=== PATIENT | female | born 1965 | race Caucasian/White ===

== ENCOUNTER 2018-06-19 19:35 | Observation (INO) ==
[2018-06-19 20:04] LABS: Bilirubin,Urine Small (Negative); Blood,Urine Large (Negative); Clarity,Urine Turbid (Clear); Color,Urine Yellow (Yellow); Glucose,Urine (UA) Normal (Normal); Ketones,Urine 40 mg/dL (Negative); Leukocyte Esterase,Urine Small (Negative); Nitrite,Urine Positive (Negative); Protein,Urine >=300 mg/dL (Neg-Trace); Specific Gravity,Urine >= 1.030 (1.010-1.025); Urobilinogen,Urine Normal (Normal)
[2018-06-19 20:12] LABS: Bacteria,Urine Many per hpf (None-Few); RBC,Urine TNTC per hpf (0-3); Squamous Epithelial Cell,Urine Few per lpf (None-Few); Transitional Epi Cells,Urine Few per hpf (None-Few); WBC,Urine TNTC per hpf (0-3)
[2018-06-19] MEDS ORDERED: 0.9 % Sodium Chloride 1,000 ML IVC ONE (20:26)
[2018-06-19] MEDS ORDERED: Ketorolac 30 MG/ML VIAL IVP ONE (20:26)
--- NOTE | 2018-06-19 20:29 | Emergency Department Note ---
Disposition Clinical Impression: Persistent vomiting Urinary tract infection Qualifiers: Urinary tract infection type: site unspecified Hematuria presence: with hematur ia Qualified Code(s): N39.0 - Urinary tract infection, site not specified; R31.9 - Hematuria, unspecified Disposition: Admitted As Inpatient Condition: Fair Referrals: Karen Gonzalez, SLICE PLUG CUTTER OPERATOR [Primary Care Provider] - Forms: ED Satisfaction Letter Time of Disposition: 22:20 Nausea/Vomiting/Diarrhea HPI - General Chief complaint: ED Nausea/Vomiting/Diarrhea Stated complaint: vomiting for 2 days Time Seen by Provider: 06/19/18 19:38 Source: patient Mode of arrival: private vehicle Limitations: no limitations Nursing Notes Reviewed: Yes Vital Signs Reviewed: Yes - History of Present Illness Pt Subjective Complaint: nausea, vomiting Onset (ago): day(s) (2 days) Description of emesis: food contents, watery Associated Abdominal Pain: Yes If pain, Location of pain: other (Suprapubic) Radiation: other (Back) Severity: moderate Quality: cramping Consistency: constant Improves with: nothing Worsens with: movement Associated symptoms: Reports: cough (With runny nose), fever/chills (Reportedly had temperature 102 earlier today), other (Dysuria and frequency) - Related Data Allergies Allergy/AdvReac Type Severity Reaction Status Date / Time No Known Allergies Allergy Verified 06/19/18 19:35 All systems ED: reviewed and negative except as stated. Constitutional: Reports: fever, chills ENT ED: Reports: congestion. Denies: ear pain, throat pain Cardiovascular: Denies: chest pain, palpitations Respiratory: Reports: cough. Denies: dyspnea, wheezes Gastrointestinal: Reports: abdominal pain, nausea, vomiting. Denies: diarrhea Genitourinary: Reports: urgency, dysuria, frequency Musculoskeletal: Reports: back pain Integumentary: Denies: rash Past Medical History - Past Medical History Attestation: Yes The following information was validated with the patient. Source: patient, nursing notes reviewed Medical history: Reports: other Psychiatric history: Reports: anxiety, depression DATA BASE ADMINISTRATOR history: Reports: endometriosis, bilateral tubal ligation - Social History Smoking Status: Current every day smoker Smokeless Tobacco Status: No Alcohol use: Reports: rarely Drug use: Reports: none Physical Exam - General Limitations: no limitations General appearance: alert, in no apparent distress - Head Head exam: atraumatic, normocephalic, normal inspection - Eye Eye exam: Present: normal appearance, PERRL, EOMI. Absent: scleral icterus, conjunctival injection - ENT ENT exam: normal exam, normal oropharynx, mucous membranes moist, normal external ear exam - Neck Neck exam: Present: normal inspection, full ROM. Absent: meningismus - Chest Chest inspection: Present: normal inspection, symmetric chest wall rise. Absent: tenderness - Respiratory Respiratory exam: Present: normal lung sounds bilaterally. Absent: respiratory distress, wheezes - Cardiovascular Cardiovascular exam: Present: normal rhythm, tachycardia, normal heart sounds - Abdominal Exam Abdominal exam: Present: soft, tenderness. Absent: distention Abdominal tenderness: Present: suprapubic - Extremities Exam Extremities exam: Present: normal inspection. Absent: pedal edema - Back Exam Back exam: Absent: CVA tenderness (R), CVA tenderness (L) - Neurological Exam Neurological exam: Present: alert, oriented X3 - Psychiatric Psychiatric exam: Present: normal affect - Skin Skin exam: Present: warm, dry. Absent: rash Course Course Narrative: Patient presents with nausea and vomiting since yesterday and had a fever at home and scrubbed light urinary symptoms. She also has some respiratory symptoms though. Urinalysis came back positive for nitrates and a lot of white cells and a lot of bacteria in the urine so I think we definitely have a urinary tract infection. I will check flu swab and a chest x-ray to evaluate respiratory causes of infection. I will give her some IV fluids and some labs. A urinary tract infection with a fever would indicate upper urinary tract involvement but she has no CVA tenderness to percussion. I will start her on some antibiotics for we wait for the rest of the workup. Disposition will be based on diagnostic results and reevaluation. - Reevaluation(s) Reevaluation #1: Patient's workup was negative except for the obvious urinary tract infection and the elevated white count. Creatinine is a little bit up and we do not have a baseline value but is only mildly elevated and consistent with dehydration. The issue is that she still nauseous and even dry heaving here in the emergency department so I am concerned she will build keep her antibiotics down and in the context of a UTI where I suspect upper urinary tract involvement, we cannot have her go home and not take the medicine so she is to be admitted. I spoke with Dr. Sharma and he accepted patient for admission. She is already received her antibiotics here as well as IV fluids. Time: 22:18 - Consultations Consultation #1: Dr. Sharma, hospitalist - I discussed the case with the hospitalist. He has accepted the patient for admission to the hospital. Time: 22:15 Vital Signs Temperature 98.6 F 06/19/18 19:37 Pulse Rate 123 06/19/18 19:37 Respiratory Rate 20 06/19/18 19:37 Blood Pressure 116/80 06/19/18 19:37 O2 Sat by Pulse Oximetry 98 06/19/18 19:37 Temperature 98.6 F 06/19/18 19:37 Pulse Rate 98 06/19/18 21:16 Respiratory Rate 19 06/19/18 21:16 Blood Pressure 113/66 06/19/18 21:16 O2 Sat by Pulse Oximetry 95 06/19/18 21:16 Oxygen Delivery Oxygen Delivery Room Air Nausea/Vomiting/Diarrhea - Lab Data Lab results reviewed: Yes I reviewed the patient's lab results. Result diagrams: 06/19/18 20:50 06/19/18 20:50 Lab Results 06/19/18 06/19/18 06/19/18 Range/Units 19:59 20:50 20:50 WBC 14.5 H (4.3-11.1) K/mcL RBC 4.46 (3.82-4.97) M/mcL Hgb 14.0 (11.5-15.4) g/dL Hct 40.0 (35.3-44.9) % MCV 89.7 (83.0-100.0) fL MCH 31.4 (28.0-33.3) pg MCHC 35.0 (31.6-35.5) g/dL RDW 12.1 (11.5-14.5) % Plt Count 251 (140-400) K/mcL MPV 9.1 L (9.4-12.4) fL Immature Gran % 0.5 (0-4) % Seg Neutrophils % 83.4 % Lymphocytes % 5.1 % Monocytes % 10.7 % Eosinophils % 0.1 % Basophils % 0.2 % Neutrophils # 12.1 H (1.6-8.9) K/mcL Lymphocytes # 0.7 (0.6-4.6) K/mcL Monocytes # 1.6 H (0.0-1.3) K/mcL Eosinophils # 0.0 (0.0-0.6) K/mcL Basophils # 0.0 (0.0-0.2) K/mcL Sodium 135 L (136-145) mEq/L Potassium 3.5 (3.5-5.1) mEq/L Chloride 99 (98-107) mEq/L Carbon Dioxide 24 (23-29) mEq/L BUN 24 H (6-20) mg/dL Creatinine 1.33 H (0.60-1.20) mg/dL Est GFR ( Amer) 51 L (> 60) Est GFR (Non-Af Amer) 42 L (> 60) BUN/Creatinine Ratio 18 (6-26) Glucose 131 H (70-105) mg/dL Calculated Osmolality 286 (280-300) Lactic Acid (0.5-2.2) mmol/L Calcium 8.9 (8.6-10.3) mg/dL Urine Color Yellow (Yellow) Urine Clarity Turbid A (Clear) Urine pH 6.0 (5.0-8.0) pH Units Ur Specific [place] >= 1.030 H (1.010-1.025) Urine Protein >=300 H (Neg-Trace) mg/dL Urine Glucose (UA) Normal (Normal) mg/dL Urine Ketones 40 H (Negative) mg/dL Urine Blood Large H (Negative) Urine Nitrite Positive A (Negative) Urine Bilirubin Small H (Negative) Urine Urobilinogen Normal (Normal) mg/dL Ur Leukocyte Esterase Small H (Negative) Urine Microscopic RBC TNTC H (0-3) per hpf Urine Microscopic WBC TNTC H (0-3) per hpf Ur Squamous Epith Cells Few (None-Few) per lpf Ur Transition Epith Cell Few (None-Few) per hpf Urine Bacteria Many H (None-Few) per hpf Ur Culture Indicated? YES A (NO) 06/19/18 Range/Units 20:50 WBC (4.3-11.1) K/mcL RBC (3.82-4.97) M/mcL Hgb (11.5-15.4) g/dL Hct (35.3-44.9) % MCV (83.0-100.0) fL MCH (28.0-33.3) pg MCHC (31.6-35.5) g/dL RDW (11.5-14.5) % Plt Count (140-400) K/mcL MPV (9.4-12.4) fL Immature Gran % (0-4) % Seg Neutrophils % % Lymphocytes % % Monocytes % % Eosinophils % % Basophils % % Neutrophils # (1.6-8.9) K/mcL Lymphocytes # (0.6-4.6) K/mcL Monocytes # (0.0-1.3) K/mcL Eosinophils # (0.0-0.6) K/mcL Basophils # (0.0-0.2) K/mcL Sodium (136-145) mEq/L Potassium (3.5-5.1) mEq/L Chloride (98-107) mEq/L Carbon Dioxide (23-29) mEq/L BUN (6-20) mg/dL Creatinine (0.60-1.20) mg/dL Est GFR ( Amer) (> 60) Est GFR (Non-Af Amer) (> 60) BUN/Creatinine Ratio (6-26) Glucose (70-105) mg/dL Calculated Osmolality (280-300) Lactic Acid 0.7 (0.5-2.2) mmol/L Calcium (8.6-10.3) mg/dL Urine Color (Yellow) Urine Clarity (Clear) Urine pH (5.0-8.0) pH Units Ur Specific [place] (1.010-1.025) Urine Protein (Neg-Trace) mg/dL Urine Glucose (UA) (Normal) mg/dL Urine Ketones (Negative) mg/dL Urine Blood (Negative) Urine Nitrite (Negative) Urine Bilirubin (Negative) Urine Urobilinogen (Normal) mg/dL Ur Leukocyte Esterase (Negative) Urine Microscopic RBC (0-3) per hpf Urine Microscopic WBC (0-3) per hpf Ur Squamous Epith Cells (None-Few) per lpf Ur Transition Epith Cell (None-Few) per hpf Urine Bacteria (None-Few) per hpf Ur Culture Indicated? (NO) - Radiology Data Radiology results reviewed: Yes I reviewed the patient's radiology results.
[2018-06-19] MEDS ORDERED: Ondansetron 4 MG/2 ML VIAL IVP ONE (20:41)
[2018-06-19 20:59] LABS: Basophils % 0.2 %; Eosinophils % 0.1 %; Immature Granulocytes % 0.5 % (0-4); Lymphocytes # 0.7 K/mcL (0.6-4.6); Lymphocytes % 5.1 %; Mean Corpuscular Hemoglobin 31.4 pg (28.0-33.3); Mean Corpuscular Volume 89.7 fL (83.0-100.0); Mean Platelet Volume 9.1 fL (9.4-12.4); Monocytes # 1.6 K/mcL (0.0-1.3); Monocytes % 10.7 %; Neutrophils # 12.1 K/mcL (1.6-8.9); Platelet Count 251 K/mcL (140-400); Red Blood Count 4.46 M/mcL (3.82-4.97); Red Cell Distribution Width 12.1 % (11.5-14.5); Segmented Neutrophils % 83.4 %
[2018-06-19 21:18] LABS: Calcium 8.9 mg/dL (8.6-10.3); Potassium 3.5 mEq/L (3.5-5.1)
[2018-06-19] MEDS ORDERED: *HR* HYDROcodone/Acet 5/325 mg TABLET PO ONE (22:53)
[2018-06-19] MEDS ORDERED: Naloxone 0.4 MG/ML INJ IVP PRN (22:53)
[2018-06-19] MEDS: 0.9 % Sodium Chloride 1,000 ML IVC SCH (23:04)
[2018-06-20] MEDS: Ondansetron 4 MG/2 ML VIAL IVP SCH ×3 (01:41→08:19)
[2018-06-20] MEDS: 0.9 % Sodium Chloride 1,000 ML IVC SCH (05:44)
[2018-06-20] MEDS: *HR* OxyCODONE/APAP 5/325 TABLET PO PRN ×5 (06:01→23:31)
[2018-06-20] MEDS ORDERED: Ondansetron 4 MG/2 ML VIAL IVP PRN (10:08)
[2018-06-20] MEDS: *HR* Promethazine 25 MG/ML VIAL IVP PRN ×4 (11:01→20:37)
[2018-06-20 12:29] LABS: Basophils % 0.4 %; Eosinophils % 0.2 %; Hematocrit 35.7 % (35.3-44.9); Hemoglobin 12.3 g/dL (11.5-15.4); Immature Granulocytes % 0.4 % (0-4); Lymphocytes # 0.7 K/mcL (0.6-4.6); Lymphocytes % 5.8 %; Mean Corpuscular HGB Conc 34.5 g/dL (31.6-35.5); Mean Corpuscular Hemoglobin 31.5 pg (28.0-33.3); Mean Corpuscular Volume 91.3 fL (83.0-100.0); Mean Platelet Volume 9.2 fL (9.4-12.4); Monocytes # 1.3 K/mcL (0.0-1.3); Monocytes % 11.7 %; Neutrophils # 9.1 K/mcL (1.6-8.9); Platelet Count 212 K/mcL (140-400); Red Blood Count 3.91 M/mcL (3.82-4.97); Red Cell Distribution Width 12.5 % (11.5-14.5); Segmented Neutrophils % 81.5 %
[2018-06-20 12:52] LABS: Alanine Aminotransferase 14 Units/L (7-52); Albumin 3.5 g/dL (3.5-5.7); Albumin/Globulin Ratio 1.2 (1.1-2.2); Alkaline Phosphatase 70 Units/L (34-104); Aspartate Amino Transferase 20 Units/L (13-39); BUN/Creatinine Ratio 22 (6-26); Bilirubin,Total 0.5 mg/dL (0.3-1.0); Blood Urea Nitrogen 24 mg/dL (6-20); Calcium 7.7 mg/dL (8.6-10.3); Carbon Dioxide 20 mEq/L (23-29); Chloride 102 mEq/L (98-107); Globulin 2.9 g/dL (2.4-3.5); Glucose 91 mg/dL (70-105); Osmolality,Calculated 278 (280-300); Potassium 3.8 mEq/L (3.5-5.1); Sodium 132 mEq/L (136-145); Total Protein 6.4 g/dL (6.4-8.9); eGFR For Non-African Americans 52 (> 60)
--- NOTE | 2018-06-20 14:42 | Internal Med History&Physical ---
Date of Encounter: 06/20/18 Time of Encounter: 14:10 Assessment and Plan (1) Acute gastroenteritis Current visit: Yes Status: Acute Etiology likely viral. Continue IV fluids and prn anti-emetics. (2) Azotemia Current visit: Yes Status: Acute Likely due to decreased oral intake with vomiting. Continue IV fluids and monitor labs. (3) Urinary tract infection Current visit: Yes Status: Acute She was started empirically on Rocephin in emergency room. Urine culture has been sent. Lactobacillus will be added. Qualifiers: Urinary tract infection type: site unspecified Hematuria presence: with hematuria Qualified Code(s): N39.0 - Urinary tract infection, site not specified; R31.9 - Hematuria, unspecified Internal Medicine - H&P: HPI Chief complaint: Vomiting Admitted From: Emergency Dept Plans for Post Hospital Care: Home History of present illness: Ms. Costa is a 52 year old female came to emergency room stating she had fevers and chills with multiple episodes of vomiting onset June 17. She reports at least 10 episodes of vomiting but no visible hematemesis noted. She had diffuse lower abdominal pain as well as low back and hip pain. When symptoms did not resolve she came to emergency room. She was admitted to [facility] floor for ongoing care needs. She reports her last episode of vomiting was approximately 1730 on June 19. She states no family members or close contacts have similar symptoms. She denies disorders of her liver gallbladder or exocrine pancreas. Past Med Surg Social Fam HX - Past Medical History Medical history: other Additional medical history: Hx of edema Psychiatric history: anxiety, depression - Social History Smoking Status: Current every day smoker Packs per day: 1 Smokeless Tobacco Status: No Alcohol use: occasionally Drug use: none Internal Medicine - H&P: Meds ALPRAZolam [Xanax 0.5 MG Tablet] 0.5 mg PO BID 06/19/18 [History] BuPROPion [Wellbutrin] 75 mg PO DAILY 06/19/18 [History] Hydrochlorothiazide [Microzide] 12.5 mg PO DAILY 06/19/18 [History] Ibuprofen [Ibu] 800 mg PO BID 06/19/18 [History] Allergy/AdvReac Type Severity Reaction Status Date / Time No Known Allergies Allergy Verified 06/19/18 19:35 All Systems PM: A 10-system review of systems was performed and is negative for pertinent findings except as documented above in the HPI. Review of systems: Gen.: She states her weight is been stable for several months Cardiovascular: She uses hydrochlorothiazide on a near daily basis for lower leg edema. She does not have hypertension or known history of VT heart failure DVT or pulmonary embolus. She does not get angina or anginal equivalents on exer tion. Respiratory: She has smoked since age 18 up to one pack per day. She denies chronic lung disease and does not use home oxygen. She has not been tested for sleep apnea. GI: As per history of present illness : She denies hematuria dysuria or kidney stones Neurologic: She denies large distribution strokes or seizures. Endocrine: She denies diabetes thyroid disease or hyperlipidemia Hematology/oncology: She denies blood disorders cancers or anemia Psychiatric: She has anxiety and depression. She denies other mental health diagnoses. [place] skeletal: She denies arthritis gout or other bone joint or muscle disorders. - Constitutional Vitals: Temp Pulse Resp BP Pulse Ox 98.3 F 87 17 112/20 95 06/20/18 07:10 06/20/18 07:10 06/20/18 07:10 06/20/18 07:10 06/20/18 07:10 Exam: Gen.: She is well-developed obese female lying in bed who appears nauseated and occasionally has dry heaves HEENT: Head is atraumatic and normocephalic. Eyes: EOMI. There is no scleral icterus. Mouth: Mucosa is moist. Neck: Supple and nontender. There is no thyromegaly or adenopathy noted. Heart: Regular without murmurs gallops or ectopics Lungs: No wheezes or crackles are heard. Abdomen: Bowel sounds are diminished. The abdomen is nontender to palpation. No masses or guarding are noted. Extremities: There is no cyanosis edema or clubbing noted. Dorsalis pedis and posterior tibial pulses are trace to 1+ palpable bilaterally. Her feet are warm to touch. Neurologic: Mental status: She is talkative and a good historian. Cranial nerves: Smile is symmetric. Forehead wrinkles bilaterally. Tongue protrudes midline. EOMI. Motor: There is no pronator drift. Cerebellar: Finger to nose is intact bilaterally. Skin: Warm and dry Internal Med - H&P Results - Labs CBC & Chem 7: 06/20/18 11:38 06/20/18 11:38 Labs: Short CBC 06/19/18 06/20/18 Range/Units 20:50 11:38 WBC 14.5 H 11.2 H (4.3-11.1) K/mcL Hgb 14.0 12.3 D (11.5-15.4) g/dL Hct 40.0 35.7 (35.3-44.9) % Plt Count 251 212 (140-400) K/mcL Neutrophils # 12.1 H 9.1 H (1.6-8.9) K/mcL BMP 06/19/18 06/20/18 20:50 11:38 Sodium 135 L 132 L Potassium 3.5 3.8 Chloride 99 102 Carbon Dioxide 24 20 L BUN 24 H 24 H Creatinine 1.33 H 1.11 Glucose 131 H 91 Calcium 8.9 7.7 L Liver Function 06/20/18 Range/Units 11:38 Total Bilirubin 0.5 (0.3-1.0) mg/dL AST 20 (13-39) Units/L ALT 14 (7-52) Units/L Alkaline Phosphatase 70 (34-104) Units/L Albumin 3.5 (3.5-5.7) g/dL Urine 06/19/18 Range/Units 19:59 Urine Color Yellow (Yellow) Urine Clarity Turbid A (Clear) Urine pH 6.0 (5.0-8.0) pH Units Ur Specific [place] >= 1.030 H (1.010-1.025) Urine Protein >=300 H (Neg-Trace) mg/dL Urine Glucose (UA) Normal (Normal) mg/dL - Impressions ITS Impressions Chest X-Ray 06/19/18 20:26 IMPRESSION: Nodular opacity within the anterior clear space measuring approximately 7 mm on the lateral examination. Further evaluation with chest CT is recommended at this time. Otherwise, no acute abnormality identified. D/ / Pedro Pablo Singh MD / Pedro Pablo Singh MD Interpreting Provider: Pedro Pablo Singh MD
[2018-06-20] MEDS: 0.45 % Sodium Chloride w/KCl 20 MEQ/1,000 ML MLS IVC SCH (15:04)
[2018-06-20] MEDS: cefTRIAXone 1,000 MG in 0.9 % Sodium Chloride Mini Bag 100 ML IVPB SCH (20:36)
[2018-06-20] MEDS: Lactobacillus 1 EACH CAP.SPRINK PO SCH (20:38)
[2018-06-21] MEDS: *HR* Promethazine 25 MG/ML VIAL IVP PRN ×3 (00:32→08:42)
[2018-06-21] MEDS: 0.45 % Sodium Chloride w/KCl 20 MEQ/1,000 ML MLS IVC SCH ×4 (00:58→21:08)
[2018-06-21] MEDS: *HR* OxyCODONE/APAP 5/325 TABLET PO PRN ×2 (04:30→13:45)
[2018-06-21 06:43] LABS: Basophils % 0.4 %; Eosinophils # 0.1 K/mcL (0.0-0.6); Eosinophils % 0.7 %; Hematocrit 33.2 % (35.3-44.9); Hemoglobin 11.5 g/dL (11.5-15.4); Immature Granulocytes % 0.4 % (0-4); Lymphocytes # 1.7 K/mcL (0.6-4.6); Lymphocytes % 15.6 %; Mean Corpuscular HGB Conc 34.6 g/dL (31.6-35.5); Mean Corpuscular Hemoglobin 31.4 pg (28.0-33.3); Mean Corpuscular Volume 90.7 fL (83.0-100.0); Mean Platelet Volume 9.8 fL (9.4-12.4); Monocytes # 1.4 K/mcL (0.0-1.3); Monocytes % 13.1 %; Neutrophils # 7.6 K/mcL (1.6-8.9); Platelet Count 205 K/mcL (140-400); Red Blood Count 3.66 M/mcL (3.82-4.97); Red Cell Distribution Width 12.3 % (11.5-14.5); Segmented Neutrophils % 69.8 %
[2018-06-21 07:14] LABS: Alanine Aminotransferase 26 Units/L (7-52); Albumin 3.3 g/dL (3.5-5.7); Albumin/Globulin Ratio 1.1 (1.1-2.2); Alkaline Phosphatase 73 Units/L (34-104); Aspartate Amino Transferase 22 Units/L (13-39); BUN/Creatinine Ratio 16 (6-26); Bilirubin,Total 0.4 mg/dL (0.3-1.0); Blood Urea Nitrogen 15 mg/dL (6-20); Calcium 7.9 mg/dL (8.6-10.3); Carbon Dioxide 23 mEq/L (23-29); Chloride 102 mEq/L (98-107); Glucose 97 mg/dL (70-105); Magnesium 1.9 mg/dL (1.6-2.6); Osmolality,Calculated 281 (280-300); Potassium 3.3 mEq/L (3.5-5.1); Sodium 135 mEq/L (136-145); Total Protein 6.3 g/dL (6.4-8.9); eGFR For Non-African Americans > 60 (> 60)
[2018-06-21] MEDS: Lactobacillus 1 EACH CAP.SPRINK PO SCH ×2 (08:30→21:02)
[2018-06-21] MEDS: Acetaminophen 325 MG TABLET PO PRN ×2 (08:50→17:56)
--- NOTE | 2018-06-21 11:45 | Internal Med Progress Note ---
Date of Encounter: 06/21/18 Time of Encounter: 11:35 - Assessment and plan (1) Acute gastroenteritis Current Visit: Yes Status: Acute Assessment and plan: June 21. Improved. Continue IV fluids at decreased rate. Continue anti- emetics as needed. Anticipate discharge home tomorrow if stable. (2) Azotemia Current Visit: Yes Status: Acute Assessment and plan: June 21. Resolved with BUN and creatinine now 15 and 0.91 respectively with estimated GFR greater 60. Reduce IV rate and continue oral intake. Anticipate discharge home tomorrow if stable. (3) Urinary tract infection Current Visit: Yes Status: Acute Assessment and plan: June 21. Preliminary urine culture shows gram-negative rods. Continue empiric Rocephin with lactobacillus. Qualifiers: Urinary tract infection type: site unspecified Hematuria presence: with hematuria Qualified Code(s): N39.0 - Urinary tract infection, site not specified; R31.9 - Hematuria, unspecified (4) Hypokalemia Current Visit: Yes Status: Acute Assessment and plan: June 21. Additional supplement potassium will be given and labs rechecked in a.m. - Subjective Interval history: June 21. She has no new complaints and states she feels better. - Constitutional Vitals: Temp Pulse Resp BP Pulse Ox 98.9 F 90 20 120/88 97 06/21/18 07:30 06/21/18 07:30 06/21/18 07:30 06/21/18 07:30 06/21/18 07:30 Exam: She is sitting in bed resting comfortably and appears in no acute distress. Her affect is cheerful. I reviewed her medications and lab results. I note she spiked fever of 103 yesterday afternoon. Hypokalemia has developed despite IV fluids with supplemental potassium. Internal Medicine: Result - Labs CBC & Chem 7: 06/21/18 05:24 06/21/18 05:24 Labs: Short CBC 06/20/18 06/21/18 Range/Units 11:38 05:24 WBC 11.2 H 10.9 (4.3-11.1) K/mcL Hgb 12.3 D 11.5 (11.5-15.4) g/dL Hct 35.7 33.2 L (35.3-44.9) % Plt Count 212 205 (140-400) K/mcL Neutrophils # 9.1 H 7.6 (1.6-8.9) K/mcL BMP 06/20/18 06/21/18 11:38 05:24 Sodium 132 L 135 L Potassium 3.8 3.3 L Chloride 102 102 Carbon Dioxide 20 L 23 BUN 24 H 15 Creatinine 1.11 0.91 Glucose 91 97 Calcium 7.7 L 7.9 L Liver Function 06/20/18 06/21/18 Range/Units 11:38 05:24 Total Bilirubin 0.5 0.4 (0.3-1.0) mg/dL AST 20 22 (13-39) Units/L ALT 14 26 (7-52) Units/L Alkaline Phosphatase 70 73 (34-104) Units/L Albumin 3.5 3.3 L (3.5-5.7) g/dL Urine 06/19/18 Range/Units 19:59 Urine Color Yellow (Yellow) Urine Clarity Turbid A (Clear) Urine pH 6.0 (5.0-8.0) pH Units Ur Specific [place] >= 1.030 H (1.010-1.025) Urine Protein >=300 H (Neg-Trace) mg/dL Urine Glucose (UA) Normal (Normal) mg/dL Consult Discharge Plan - Plan Referrals: Karen Gonzalez, KISS MACHINE OPERATOR [Primary Care Provider] - 1 week
[2018-06-21] MEDS: ALPRAZolam 0.5 MG TABLET PO SCH ×2 (12:28→21:02)
[2018-06-21] MEDS: cefTRIAXone 1,000 MG in 0.9 % Sodium Chloride Mini Bag 100 ML IVPB SCH (21:02)
[2018-06-22] MEDS: Acetaminophen 325 MG TABLET PO PRN ×2 (00:36→07:38)
[2018-06-22 07:14] LABS: Basophils % 0.4 %; Eosinophils # 0.5 K/mcL (0.0-0.6); Eosinophils % 5.8 %; Hematocrit 32.9 % (35.3-44.9); Immature Granulocytes % 0.4 % (0-4); Lymphocytes # 1.1 K/mcL (0.6-4.6); Lymphocytes % 12.7 %; Mean Corpuscular HGB Conc 33.4 g/dL (31.6-35.5); Mean Corpuscular Hemoglobin 30.7 pg (28.0-33.3); Mean Corpuscular Volume 91.9 fL (83.0-100.0); Mean Platelet Volume 9.5 fL (9.4-12.4); Monocytes # 0.9 K/mcL (0.0-1.3); Monocytes % 10.3 %; Neutrophils # 5.9 K/mcL (1.6-8.9); Platelet Count 226 K/mcL (140-400); Red Blood Count 3.58 M/mcL (3.82-4.97); Red Cell Distribution Width 12.5 % (11.5-14.5); Segmented Neutrophils % 70.4 %
[2018-06-22 07:30] LABS: BUN/Creatinine Ratio 14 (6-26); Blood Urea Nitrogen 12 mg/dL (6-20); Calcium 8.2 mg/dL (8.6-10.3); Carbon Dioxide 25 mEq/L (23-29); Chloride 103 mEq/L (98-107); Glucose 100 mg/dL (70-105); Osmolality,Calculated 280 (280-300); Sodium 135 mEq/L (136-145); eGFR For Non-African Americans > 60 (> 60)
[2018-06-22 07:37] VITALS: BP 109/76
[2018-06-22] MEDS: Lactobacillus 1 EACH CAP.SPRINK PO SCH (08:34)
[2018-06-22] MEDS: ALPRAZolam 0.5 MG TABLET PO SCH (08:35)
--- NOTE | 2018-06-22 09:32 | Discharge Summary ---
Orders not resulted at time of discharge: Pending orders 06/19/18 20:45 Culture,Blood [BC] Stat Date of Encounter: 06/22/18 Time of Encounter: 09:25 - Discharge Diagnosis (1) Acute gastroenteritis Priority: Primary Status: Acute (2) Azotemia Priority: Secondary Status: Resolved (3) Urinary tract infection Priority: Secondary Status: Acute Qualifiers: Urinary tract infection type: site unspecified Hematuria presence: with he maturia Qualified Code(s): N39.0 - Urinary tract infection, site not specified; R31.9 - Hematuria, unspecified (4) Hypokalemia Priority: Secondary Status: Resolved Hospital course: Ms. Costa is a 52 year old female who came to emergency room stating she had fevers and chills with multiple episodes of vomiting onset June 17. She reports at least 10 episodes of vomiting but no visible hematemesis noted. She had diffuse lower abdominal pain as well as low back and hip pain. When symptoms did not resolve she came to emergency room. She was admitted to [facility] floor for ongoing care needs. Initial orders were written by the emergency room physician. I saw her on June 20 and performed a history and physical. She was started on IV fluids and anti- medics. Rocephin was started empirically for UTI. Urine culture returned the morning of June 22 showing Escherichia coli with broad sensitivity. Leukocytosis and left shift on WBC differential resolved. She will continue with antibiotic and probiotic for 5 additional days at discharge. Her vomiting resolved and she was able to tolerate adequate amount of food and fluid intake. IV fluids were given and azotemia resolved with BUN and creatinine decreasing to 12 and 0.83 respectively on day of discharge with estimated GFR greater than 60. Ibuprofen and hydrochlorothiazide were held because of azotemia. Her blood pressure was initially borderline low but returned to satisfactory level. She will remain off these medications at discharge. On June 22 she was stable for discharge home. She will follow with her PCP Karen Gonzalez CNP within 1 week. - Time Spent with Patient Total time spent providing and/or coordinating discharge services: - Discharge Medications Prescriptions: New cephALEXin [Keflex] 500 mg PO Q8H #15 capsule Lactobacillus [Culturelle] 1 each PO BID #10 cap.sprink Continue BuPROPion [Wellbutrin] 75 mg PO DAILY ALPRAZolam [Xanax 0.5 MG Tablet] 0.5 mg PO BID Discontinued Hydrochlorothiazide [Microzide] 12.5 mg PO DAILY Ibuprofen [Ibu] 800 mg PO BID Home Medications: ALPRAZolam [Xanax 0.5 MG Tablet] 0.5 mg PO BID 06/19/18 [History] BuPROPion [Wellbutrin] 75 mg PO DAILY 06/19/18 [History] Lactobacillus [Culturelle] 1 each PO BID #10 cap.sprink 06/22/18 [Rx] cephALEXin [Keflex] 500 mg PO Q8H #15 capsule 06/22/18 [Rx] Allergies/Adverse Reactions: Allergy/AdvReac Type Severity Reaction Status Date / Time No Known Allergies Allergy Verified 06/19/18 19:35 Date of admission: 06/19/18 22:27 Primary care physician: Karen Gonzalez CNP - Constitutional Vitals: Temp Pulse Resp BP Pulse Ox 98.6 F 78 16 109/76 94 06/22/18 07:35 06/22/18 07:35 06/22/18 07:35 06/22/18 07:35 06/22/18 07:35 - Patient Status Disposition: Home, Self-Care Condition: Fair - Discharge Instructions Follow Up With: Karen Gonzalez CNP [Primary Care Provider] - 1 week - Diet and Activity Activity: resume usual activities as tolerated Diet: advance to your usual diet
== END 2018-06-22 10:00 | disposition home or self-care (01) ==
LOC: INPPIK 19:35 → EMEROOPIK 19:35 → INPPIK 22:46
PROVIDERS: ADMIT Internal Medicine; ATTEND Internal Medicine